=== PATIENT | female | born 1955 | race Caucasian/White ===

== ENCOUNTER → 2020-05-02 | Outpatient (CLI) | payer OTHER ==
[~2020-05-02] MED LIST: BUPR-86 PO; CHOL10003 PO; FAMO20TA7 PO; LEVO175T2 PO; LYSI500T25 PO; VERA180T6 PO
== END | disposition home or self-care (01) ==
LOC: STAR 15:12
PROVIDERS: ATTEND Podiatrist
DX: Z01.818 Encounter for other preprocedural examination (principal); M20.21 Hallux rigidus, right foot; M25.70 Osteophyte, unspecified joint; Z20.828 Contact with and (suspected) exposure to other viral communicable diseases
CPT/HCPCS: 87635; 93005

== ENCOUNTER 2020-05-08 13:30 | Day surgery (SDC) | payer OTHER ==
[~2020-05-08] VITALS: Ht 152.4 cm; Wt 64.9 kg
[2020-05-08] MEDS ORDERED: MIDAZOLAM 1 MG/ML, 2ML ONE (13:36)
[2020-05-08] MEDS ORDERED: PROPOFOL 10 MG/ML, 20ML ONE (13:36)
[2020-05-08] MEDS ORDERED: DEXAMETHASONE 4 MG/ML, 1ML ONE (13:36)
[2020-05-08] MEDS ORDERED: GLYCOPYRROLATE 0.2MG/1ML, 5ML ONE (13:36)
[2020-05-08] MEDS ORDERED: FENTANYL PF 100 MCG/2ML ONE (13:36)
[2020-05-08] MEDS ORDERED: ROCURONIUM 10MG/ML,5ML ONE (13:36)
[2020-05-08] MEDS ORDERED: CHLORHEXIDINE 15 ML UDC MM ONE (14:30)
[2020-05-08] MEDS ORDERED: HALOPERIDOL 5 MG/ML IV PRN (14:30)
[2020-05-08] MEDS ORDERED: DIPHENHYDRAMINE 50 MG/ML, 1ML IVPush PRN (14:30)
[2020-05-08] MEDS ORDERED: METHOCARBAMOL 1,000 MG in DEXTROSE 5% 100 ML IV PRN (14:30)
[2020-05-08] MEDS ORDERED: hydrALAzine 20 MG/ML, 1ML IV PRN (14:30)
[2020-05-08] MEDS ORDERED: LACTATED RINGERS 1,000 ML IV SCH (14:30)
[2020-05-08] MEDS ORDERED: ACETAMINOPHEN 325 MG TABLET PO PRN (14:30)
[2020-05-08] MEDS ORDERED: EPHEDRINE 50 MG/ML, 1ML IM PRN (14:30)
[2020-05-08] MEDS ORDERED: ONDANSETRON 2MG/ML, 2ML IVPush PRN (14:30)
[2020-05-08] MEDS ORDERED: HYDROmorphone 1 MG/ML, 1ML INJ IVPush PRN (14:30)
[2020-05-08] MEDS ORDERED: HYDROcodone/APAP 7.5-325MG/15ML UDC PO PRN (14:30)
[2020-05-08] MEDS ORDERED: OXYcodone 5 MG/5 ML ORAL.SOL UDC PO PRN (14:30)
[2020-05-08] MEDS ORDERED: MEPERIDINE/PF 25MG/0.5ML IVPush PRN (14:30)
[2020-05-08] MEDS ORDERED: MIDAZOLAM 1 MG/ML, 2ML IV PRN (14:30)
[2020-05-08] MEDS ORDERED: METOCLOPRAMIDE 5 MG/ML, 2ML IVPush PRN (14:30)
[2020-05-08] MEDS ORDERED: FENTANYL PF 100 MCG/2ML IV PRN (14:30)
[2020-05-08] MEDS ORDERED: LORazepam 2 MG/ML, 1ML IVPush PRN (14:30)
[2020-05-08] MEDS ORDERED: DIAZEPAM 5 MG/ML, 2ML IVPush PRN (14:30)
[2020-05-08] MEDS ORDERED: ALBUTEROL/IPRATROPIUM 2.5MG/0.5MG, 3 ML NPPB PRN (14:30)
[2020-05-08] MEDS ORDERED: LABETALOL 5MG/ML, 20ML IV PRN (14:30)
[2020-05-08] MEDS ORDERED: EPHEDRINE 50 MG/ML, 1ML IVPush PRN (14:30)
[2020-05-08] MEDS ORDERED: KETOROLAC 30 MG/1 ML IVPush PRN (14:30)
[2020-05-08] MEDS ORDERED: BACITRACIN 50,000 UNIT ONE (14:31)
[2020-05-08] MEDS ORDERED: BUPIVACAINE 0.25% ONE (14:31)
[2020-05-08] MEDS ORDERED: LIDOCAINE 1%, 20ML ONE (14:31)
[2020-05-08] MEDS ORDERED: SCOPOLAMINE 1MG PATCH TD ONE ×2 (14:35→15:00)
[2020-05-08] MEDS ORDERED: KETOROLAC 30 MG/1 ML ONE (18:18)
[2020-05-08] MEDS ORDERED: KETOROLAC 30 MG/1 ML IVPush ONE (19:00)
== END 2020-05-08 19:34 | disposition home or self-care (01) ==
LOC: OR 13:30
PROVIDERS: ATTEND Podiatrist
DX: M20.21 Hallux rigidus, right foot (principal); M89.8X7 Other specified disorders of bone, ankle and foot; K21.9 Gastro-esophageal reflux disease without esophagitis; I47.1 Supraventricular tachycardia; Z79.890 Hormone replacement therapy; Z79.899 Other long term (current) drug therapy
CPT/HCPCS: 28122; 28291; C1776; J1100; J1885; J2250; J2704; J3010; J7120